=== PATIENT | female | born 1935 | race Caucasian/White ===

== ENCOUNTER → 2016-02-19 | Outpatient (CLI) | payer OTHER, MEDICARE | LOC: MMPC 10:00 | PROVIDERS: ATTEND Podiatrist Foot & Ankle Surgery | DX: L03.031 Cellulitis of right toe (principal); L60.0 Ingrowing nail; I87.2 Venous insufficiency (chronic) (peripheral); L60.3 Nail dystrophy; R60.0 Localized edema | CPT/HCPCS: 11721 ×2; G0463 ==

== ENCOUNTER → 2016-04-23 | Outpatient (CLI) | payer OTHER, MEDICARE | LOC: MMPC 10:00 | PROVIDERS: ATTEND Podiatrist Foot & Ankle Surgery | DX: M79.671 Pain in right foot (principal); M79.672 Pain in left foot; L03.031 Cellulitis of right toe; L03.032 Cellulitis of left toe; I87.2 Venous insufficiency (chronic) (peripheral); L60.0 Ingrowing nail; L60.3 Nail dystrophy; R60.0 Localized edema | CPT/HCPCS: 11721 ×2; G0463 ==

== ENCOUNTER → 2016-07-01 | Outpatient (CLI) | payer OTHER, MEDICARE | LOC: MMPC 10:00 | PROVIDERS: ATTEND Podiatrist Foot & Ankle Surgery | DX: L60.0 Ingrowing nail (principal); L60.3 Nail dystrophy; I87.2 Venous insufficiency (chronic) (peripheral); R60.0 Localized edema | CPT/HCPCS: 11721 ×2; G0463 ==